=== PATIENT | female | born 2000 | race Caucasian/White ===

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

== ENCOUNTER → 2022-02-02 | Outpatient (CLI) | payer OTHER | LOC: M WHC 06:37 | PROVIDERS: ATTEND Nurse Practitioner Family | DX: N92.1 Excessive and frequent menstruation with irregular cycle (principal); R10.32 Left lower quadrant pain ==

== ENCOUNTER → 2022-03-02 | Outpatient (CLI) | payer OTHER ==
[2022-03-02 19:27] LABS: HEMATOCRIT 37.3 % (36.0-47.0); HEMOGLOBIN 12.3 g/dl (12.0-15.5); MEAN CORPUSCULAR HEMOGLOBIN 29.7 pg (27.0-33.0); MEAN CORPUSCULAR VOLUME 90.1 fl (80.0-96.0); PLATELET COUNT, AUTOMATED 243 10^3/uL (150-450); RED BLOOD COUNT 4.14 10^6/uL (4.00-5.40); WHITE BLOOD COUNT 4.8 10^3/uL (4.0-10.0)
[2022-03-02 20:07] LABS: FREE T4 0.97 NG/DL (0.78-1.33); THYROID STIMULATING HORMONE 0.904 uIU/ML (0.463-3.98)
[2022-03-03 00:01] LABS: GC DNA AMPLIFICATION NEGATIVE (NEGATIVE)
== END ==
LOC: M WUC 11:54
PROVIDERS: ATTEND Obstetrics & Gynecology Obstetrics
DX: Z09 Encounter for follow-up examination after completed treatment for conditions other than malignant neoplasm (principal); N92.6 Irregular menstruation, unspecified